=== PATIENT | female | born 1990 | race Caucasian/White ===

== ENCOUNTER 2016-11-16 11:36 | Emergency (ER) | payer OTHER ==
[2016-11-16] MEDS ORDERED: Adenocard IV 6 MG/2 ML IV ONE ×2 (11:41→11:49)
[2016-11-16] MEDS ORDERED: Sodium Chloride 0.9% 1000 ML 1,000 ML ONE (11:41)
[2016-11-16] MEDS ORDERED: Sodium Chloride 0.9% 1000 ML 1,000 ML IV STA (11:49)
[2016-11-16] MEDS ORDERED: BABY ASPIRIN 81 MG CHEW PO ONE (11:51)
[2016-11-16] MEDS ORDERED: Ativan 2 MG/1 ML VIAL IV ONE (11:51)
--- NOTE | 2016-11-16 12:05 | XRAY ---
Indication: Chest pain. SVT. Comparison: None Portable apical lordotic chest demonstrates normal heart, lungs, and bony thorax.
[2016-11-16 12:07] LABS: BASOPHIL % 0.3 % (0.0-0.4); Eosinophil % 1.4 % (0.00-5.0); Lymphocytes % 12.4 % (24.0-44.0); Mean Cell Volume 93.2 fl (78-100); Mean Corpuscular Hemoglobin 30.8 pg (26-32); Mean Platelet Volume 10.5 fl (6-9.5); Monocytes % 6.9 % (0.0-12.0); Platelet Count 198 K/mm3 (150-450); Red Blood Count 4.68 M/mm3 (4.1-5.4); Red Cell Distribution Width 13.9 % (11.5-14.0); White Blood Count 7.3 K/mm3 (4.0-10.5)
[2016-11-16] MEDS ORDERED: BABY ASPIRIN 81 MG CHEW ONE (12:08)
[2016-11-16] MEDS ORDERED: Ativan 2 MG/1 ML VIAL ONE (12:08)
[2016-11-16 12:10] LABS: ADD URINE CULTURE? NO (NO); Bilirubin NEGATIVE (NEGATIVE); Blood NEGATIVE Ery/ul (0-5); COMPLETE URINE MICROSCOPIC? NO; Collection Type CATH; Glucose NEGATIVE (NEGATIVE); Leukocyte Esterase NEGATIVE (NEGATIVE)
[2016-11-16 12:18] LABS: ALKALINE PHOSPHATASE 81 U/L (46-116); ANION GAP 17.7 MEQ/L (5-15); BLOOD UREA NITROGEN 6 mg/dL (9-20); CHLORIDE 104 mEq/L (98-107); Carbon Dioxide 24.1 mEq/L (21-32); Glucose 107 MG/DL (70-110); MAGNESIUM 1.8 mg/dL (1.8-2.4); Potassium 3.5 mEq/L (3.5-5.1); SGOT/AST 17 U/L (15-37); SGPT/ALT 17 U/L (12-78); SODIUM 142 mEq/L (136-145); Total Protein 7.6 gm/dL (6.4-8.2)
--- NOTE | 2016-11-16 13:00 | ERPHSYRPT ---
- History of Present Illness Time Seen by Provider: 11/16/16 11:49 Source: patient Patient Subjective Stated Complaint: PT HERE FOR CHEST PAIN AND FAST HEART RATE SUDDEN ONSET WHILE AT HOME RESTING Triage Nursing Assessment: PT ALERT, RESTLESS, RESP LOBORED AT TIMES, CHEST CLEAR, NO EDEMA. MOVES ALL EXT WELL Physician History: CC: palpitations Hx: 26 y/o patient with no hx of palpitations or heart problems. She was cleaning the house, no chemical exposure, and felt chest tightness and palpitations. It was severe starting 30 minutes [employer]. She came to ER. Some short of breath during. She has hx of anxiety and uses a stress ball. Denies drug use and denies caffiene. She is a stay at home mother. Timing/Duration: today Aspirin Treatment Today: unknown Allergies/Adverse Reactions: Iodinated Contrast- Oral and IV Dye [Iodinated Contrast Media - IV Dye] Allergy (Verified 11/16/16 11:50) acetaminophen [From Percocet] Adverse Reaction (Severe, Verified 11/16/16 11:50) Vomiting oxycodone HCl [From Percocet] Adverse Reaction (Severe, Verified 11/16/16 11:50) Vomiting Home Medications: No Reportable Medications [No Reported Medications] 11/16/16 [History] Hx Tetanus, Diphtheria Vaccination/Date Given: No Hx Influenza Vaccination/Date Given: No Hx Pneumococcal Vaccination/Date Given: No - Review of Systems Constitutional: No Fever, No Chills Eyes: No Symptoms Ears, Nose, & Throat: No Symptoms Respiratory: Dyspnea, No Cough Cardiac: Chest Pain, Palpitations, No Syncope Abdominal/Gastrointestinal: No Abdominal Pain, No Nausea, No Vomiting, No Diarrhea Genitourinary Symptoms: No Symptoms Musculoskeletal: No Symptoms Skin: No Symptoms Neurological: No Focal Weakness, No Headache, No Parasthesia All Other Systems: Reviewed and Negative - Past Medical History Pertinent Past Medical History: Yes Female Reproductive Disorders: Other Other Medical History: OVARIAN CYSTS - Past Surgical History Past Surgical History: Yes Gastrointestinal: Appendectomy Musculoskeletal: Orthopedic Surgery Female Surgical History: Tubal Ligation Other Surgical History: right ankle - Social History Smoking Status: Current every day smoker How long have you smoked: 7 Exposure to second hand smoke: Yes Drug Use: none Patient Lives Alone: No - Female History Hx Last Menstrual Period: NOW - Nursing Vital Signs Nursing Vital Signs: Initial Vital Signs Temperature 99 F Temperature Source Oral Pulse Rate [Bilateral Radial] 190 Pulse Rate 114 Respiratory Rate 16 Blood Pressure [Right Arm] 109/72 Pain Intensity 3 - Physical Exam General Appearance: alert, thin Eye Exam: PERRL/EOMI Ears, Nose, Throat Exam: normal ENT inspection, moist mucous membranes Neck Exam: normal inspection, non-tender, supple Respiratory Exam: normal breath sounds, lungs clear Cardiovascular Exam: regular rate/rhythm, tachycardia Gastrointestinal/Abdomen Exam: soft, No tenderness, No distention Back Exam: normal inspection, normal range of motion Extremity Exam: normal inspection, normal range of motion, No calf tenderness, No pedal edema Neurologic Exam: alert, oriented x 3, cooperative, sensation nml, No motor deficits Skin Exam: warm, dry, No rash SpO2 Interpretation: normal SpO2: 97 Oxygen Delivery: Room Air - Course Nursing assessment & vital signs reviewed: Yes EKG Interpreted by Me: RATE (195), SVT, NORMAL AXIS, Non-specific ST Changes Rhythm Strip: Rate (83), Normal Sinus Rhythm (post adenosine push) - Radiology Exams cxr X-ray Interpretation: Teleradiologist Report, Negative Ordered Tests: Active Orders 24 hr Category Date Time Status Counter Attendant STAT Care 11/16/16 11:49 Active Cath for Specimen-Straight STAT Care 11/16/16 11:49 Active EKG-ER Only STAT Care 11/16/16 11:49 Active EKG-ER Only STAT Care 11/16/16 11:50 Active IV Insertion STAT Care 11/16/16 11:49 Active Pulse Oximetry (ED) STAT Care 11/16/16 11:49 Active CHEST 1 VIEW (PORTABLE) Stat Exams 11/16/16 11:50 Completed CBC W DIFF Stat Lab 11/16/16 11:50 Completed CMP Stat Lab 11/16/16 11:50 Completed MAGNESIUM Stat Lab 11/16/16 11:50 Completed TROPONIN Q3H Lab 11/16/16 11:55 Completed TROPONIN Q3H Lab 11/16/16 15:00 Ordered TROPONIN Q3H Lab 11/16/16 18:00 Ordered TROPONIN Q3H Lab 11/16/16 21:00 Ordered TROPONIN Q3H Lab 11/17/16 00:00 Ordered UA W/RFX UR CULTURE Stat Lab 11/16/16 12:05 Completed Urine Triage Profile Stat Lab 11/16/16 11:50 Completed Medication Summary Discontinued Medications Generic Name Dose Route Start Last Admin Trade Name Jess PRN Reason Stop Dose Admin Adenosine Confirm 11/16/16 11:41 Adenocard Iv 6 Mg/2 Ml Administered 11/16/16 11:42 Dose 6 mg IV .STK-MED ONE Adenosine 6 mg 11/16/16 11:49 11/16/16 12:09 Adenocard Iv 6 Mg/2 Ml IV 11/16/16 11:50 6 mg STAT ONE Administration Aspirin 81 mg 11/16/16 11:51 11/16/16 12:09 Baby Aspirin 81 Mg Chew PO 11/16/16 11:52 81 mg STAT ONE Administration Aspirin Confirm 11/16/16 12:08 Baby Aspirin 81 Mg Chew Administered 11/16/16 12:09 Dose 81 mg .ROUTE .STK-MED ONE Sodium Chloride Confirm 11/16/16 11:41 Sodium Chloride 0.9% 1000 Ml Administered 11/16/16 11:42 Dose 1,000 mls @ ud .ROUTE .STK-MED ONE Sodium Chloride 1,000 mls @ 999 mls/hr 11/16/16 11:49 11/16/16 12:09 Sodium Chloride 0.9% 1000 Ml IV 11/16/16 12:49 999 mls/hr .Q1H1M STA Administration Lorazepam 1 mg 11/16/16 11:51 11/16/16 12:09 Ativan 2 Mg/1 Ml Vial IV 11/16/16 11:52 1 mg STAT ONE Administration Lorazepam Confirm 11/16/16 12:08 Ativan 2 Mg/1 Ml Vial Administered 11/16/16 12:09 Dose 2 mg .ROUTE .STK-MED ONE Lab/Rad Data: Laboratory Result Diagrams 11/16/16 11:50 11/16/16 11:50 Laboratory Results 11/16/16 11/16/16 11/16/16 Range/Units 12:05 11:55 11:50 WBC (4.0-10.5) K/mm3 RBC (4.1-5.4) M/mm3 Hgb (12.0-16.0) gm/dl Hct (35-47) % MCV (78-100) fl MCH (26-32) pg MCHC (32-36) g/dl RDW (11.5-14.0) % Plt Count (150-450) K/mm3 MPV (6-9.5) fl Gran % (36.0-66.0) % Lymphocytes % (24.0-44.0) % Monocytes % (0.0-12.0) % Eosinophils % (0.00-5.0) % Basophils % (0.0-0.4) % Basophils # (0-0.4) Sodium (136-145) mEq/L Potassium (3.5-5.1) mEq/L Chloride (98-107) mEq/L Carbon Dioxide (21-32) mEq/L Anion Gap (5-15) MEQ/L BUN (9-20) mg/dL Creatinine (0.55-1.30) mg/dl Estimated GFR ML/MIN Glucose (70-110) MG/DL Calcium (8.5-10.1) mg/dL Magnesium (1.8-2.4) mg/dL Total Bilirubin (0.2-1.0) mg/dL AST (15-37) U/L ALT (12-78) U/L Alkaline Phosphatase (46-116) U/L Troponin I < 0.017 (0.000-0.056) ng/ml Serum Total Protein (6.4-8.2) gm/dL Albumin (3.4-5.0) g/dL Ur Collection Type CATH Urine Color YELLOW (YELLOW) Urine Appearance CLEAR (CLEAR) Urine pH 8.0 (5-6) Ur Specific [place] 1.005 (1.005-1.025) Urine Protein NEGATIVE (Negative) Urine Ketones NEGATIVE (NEGATIVE) Urine Blood NEGATIVE (0-5) Joseph/ul Urine Nitrite NEGATIVE (NEGATIVE) Urine Bilirubin NEGATIVE (NEGATIVE) Urine Urobilinogen NORMAL (0-1) mg/dL Ur Leukocyte Esterase NEGATIVE (NEGATIVE) Urine Glucose NEGATIVE (NEGATIVE) mg/dL Urine Opiates Level NEG. (NEGATIVE) Ur Methadone NEG. (NEGATIVE) Urine Barbiturates NEG. (NEGATIVE) Ur Phencyclidine (PCP) NEG. (NEGATIVE) Urine Amphetamine NEG. (NEGATIVE) U Benzodiazepine Level NEG. (NEGATIVE) Urine Cocaine NEG. (NEGATIVE) Urine Marijuana (THC) NEG. (NEGATIVE) Specimen Received 11/16/16 1205 11/16/16 11/16/16 Range/Units 11:50 11:50 WBC 7.3 (4.0-10.5) K/mm3 RBC 4.68 (4.1-5.4) M/mm3 Hgb 14.4 (12.0-16.0) gm/dl Hct 43.6 (35-47) % MCV 93.2 (78-100) fl MCH 30.8 (26-32) pg MCHC 33.0 (32-36) g/dl RDW 13.9 (11.5-14.0) % Plt Count 198 (150-450) K/mm3 MPV 10.5 H (6-9.5) fl Gran % 79.0 H (36.0-66.0) % Lymphocytes % 12.4 L (24.0-44.0) % Monocytes % 6.9 (0.0-12.0) % Eosinophils % 1.4 (0.00-5.0) % Basophils % 0.3 (0.0-0.4) % Basophils # 0.02 (0-0.4) Sodium 142 (136-145) mEq/L Potassium 3.5 (3.5-5.1) mEq/L Chloride 104 (98-107) mEq/L Carbon Dioxide 24.1 (21-32) mEq/L Anion Gap 17.7 H (5-15) MEQ/L BUN 6 L (9-20) mg/dL Creatinine 0.81 (0.55-1.30) mg/dl Estimated GFR > 60 ML/MIN Glucose 107 (70-110) MG/DL Calcium 9.0 (8.5-10.1) mg/dL Magnesium 1.8 (1.8-2.4) mg/dL Total Bilirubin 0.30 (0.2-1.0) mg/dL AST 17 (15-37) U/L ALT 17 (12-78) U/L Alkaline Phosphatase 81 (46-116) U/L Troponin I (0.000-0.056) ng/ml Serum Total Protein 7.6 (6.4-8.2) gm/dL Albumin 4.0 (3.4-5.0) g/dL Ur Collection Type Urine Color (YELLOW) Urine Appearance (CLEAR) Urine pH (5-6) Ur Specific [place] (1.005-1.025) Urine Protein (Negative) Urine Ketones (NEGATIVE) Urine Blood (0-5) Joseph/ul Urine Nitrite (NEGATIVE) Urine Bilirubin (NEGATIVE) Urine Urobilinogen (0-1) mg/dL Ur Leukocyte Esterase (NEGATIVE) Urine Glucose (NEGATIVE) mg/dL Urine Opiates Level (NEGATIVE) Ur Methadone (NEGATIVE) Urine Barbiturates (NEGATIVE) Ur Phencyclidine (PCP) (NEGATIVE) Urine Amphetamine (NEGATIVE) U Benzodiazepine Level (NEGATIVE) Urine Cocaine (NEGATIVE) Urine Marijuana (THC) (NEGATIVE) Specimen Received - Progress Progress Note: 11/16/16 12:57 Pt had PSVT. IV placed on arrival. IVP adenosine given with relief to NSR. She was very anxious but felt better after ativan, stress ball, and fidget ring. Reviewed test results with pt and grandma. Will release with instr to follow up. Counseled pt/family regarding: lab results, diagnosis, need for follow-up, rad results - Departure Time of Disposition: 13:00 Departure Disposition: Home Clinical Impression: Paroxysmal supraventricular tachycardia Condition: Stable Critical Care Time: No Referrals: DOCTOR,NO FAMILY [Primary Care Provider] - Instructions: Paroxysmal Supraventricular Tachycardia Additional Instructions: No driving today and stay with family. Return for problems or concerns. Avoid caffiene and stimulants. Follow up this week with a family doctor.
[2016-11-16 13:24] VITALS: BP 109/67; PULSE 101; O2SAT 100
== END 2016-11-16 13:24 | disposition home or self-care (01) ==
LOC: ED 11:36
DX: I47.1 Supraventricular tachycardia (principal); R06.02 Shortness of breath; R06.00 Dyspnea, unspecified; R07.9 Chest pain, unspecified; R00.2 Palpitations
CPT/HCPCS: 36000; 36415; 71010; 80053; 80307; 81002; 83735; 84484; 85025; 93005; 93041; 96360; 96374; 96375; 99284; J0153; J2060; P9612; A9270-GY